=== PATIENT | male | born 1950 | race Caucasian/White ===

== ENCOUNTER → 2020-01-04 10:04 | Outpatient (BNVA) | payer MEDICAID, SELFPAY | PROVIDERS: Family Provider Nurse Practitioner Family; PCP Nurse Practitioner Family; Visit Provider Family Medicine | DX: I10 Essential (primary) hypertension (principal); E78.1 Pure hyperglyceridemia; J44.9 Chronic obstructive pulmonary disease, unspecified | CPT/HCPCS: 80053; 80061 ==

== ENCOUNTER → 2020-12-27 15:11 | Outpatient (BNVA) | payer MEDICAID, SELFPAY | PROVIDERS: Family Provider Nurse Practitioner Family; PCP Nurse Practitioner Family; Visit Provider Family Medicine | DX: I10 Essential (primary) hypertension (principal); J41.0 Simple chronic bronchitis; E78.1 Pure hyperglyceridemia; J32.0 Chronic maxillary sinusitis; G47.33 Obstructive sleep apnea (adult) (pediatric); M62.830 Muscle spasm of back | CPT/HCPCS: 80053; 80061 ==

== ENCOUNTER → 2021-11-28 09:56 | Outpatient (BNVA) | payer MEDICAID, SELFPAY | PROVIDERS: Family Provider Nurse Practitioner Family; PCP Family Medicine; Visit Provider Family Medicine | DX: I10 Essential (primary) hypertension (principal); G47.33 Obstructive sleep apnea (adult) (pediatric); J32.0 Chronic maxillary sinusitis; E78.1 Pure hyperglyceridemia; J44.9 Chronic obstructive pulmonary disease, unspecified; K21.9 Gastro-esophageal reflux disease without esophagitis | CPT/HCPCS: 80053; 80061; 85025 ==

== ENCOUNTER → 2022-12-18 09:39 | Outpatient (BNVA) | payer MEDICARE, MEDICAID, SELFPAY | PROVIDERS: Family Provider Nurse Practitioner Family; PCP Family Medicine; Visit Provider Family Medicine | DX: I10 Essential (primary) hypertension (principal); K21.9 Gastro-esophageal reflux disease without esophagitis; J41.0 Simple chronic bronchitis; G47.33 Obstructive sleep apnea (adult) (pediatric); J32.0 Chronic maxillary sinusitis; E78.1 Pure hyperglyceridemia; J44.9 Chronic obstructive pulmonary disease, unspecified | CPT/HCPCS: 80053; 80061; 85025 ==

== ENCOUNTER → 2023-06-11 11:02 | Outpatient (BNVA) | payer MEDICARE, MEDICAID, SELFPAY | PROVIDERS: Family Provider Nurse Practitioner Family; PCP Family Medicine; Visit Provider Family Medicine | DX: J44.9 Chronic obstructive pulmonary disease, unspecified (principal) | CPT/HCPCS: 71046 ==

== ENCOUNTER → 2024-01-08 10:32 | Outpatient (BNVA) | payer MEDICARE, MEDICAID, SELFPAY | PROVIDERS: Family Provider Nurse Practitioner Family; PCP Family Medicine; Visit Provider Family Medicine | DX: I10 Essential (primary) hypertension (principal); G47.33 Obstructive sleep apnea (adult) (pediatric); J41.0 Simple chronic bronchitis; J32.0 Chronic maxillary sinusitis; K21.9 Gastro-esophageal reflux disease without esophagitis; E78.1 Pure hyperglyceridemia; H61.92 Disorder of left external ear, unspecified; J44.9 Chronic obstructive pulmonary disease, unspecified | CPT/HCPCS: 80053; 80061; 85025 ==

== ENCOUNTER → 2024-01-15 09:37 | Outpatient (BNVA) | payer MEDICARE, MEDICAID, SELFPAY | PROVIDERS: Family Provider Nurse Practitioner Family; PCP Family Medicine; Visit Provider Family Medicine | DX: E87.5 Hyperkalemia (principal) | CPT/HCPCS: 80048 ==

== ENCOUNTER → 2024-01-20 15:27 | Outpatient (BNVA) | payer MEDICARE, MEDICAID, SELFPAY | PROVIDERS: Family Provider Nurse Practitioner Family; PCP Family Medicine; Visit Provider Dermatology | DX: L82.1 Other seborrheic keratosis (principal); L81.4 Other melanin hyperpigmentation; D48.5 Neoplasm of uncertain behavior of skin; L57.0 Actinic keratosis | CPT/HCPCS: 11102; 17000; 69100; 99203 ==

== ENCOUNTER → 2024-02-17 07:58 | Outpatient (BNVA) | payer MEDICARE, MEDICAID, SELFPAY | PROVIDERS: Family Provider Nurse Practitioner Family; PCP Family Medicine; Visit Provider Dermatology | DX: C44.219 Basal cell carcinoma of skin of left ear and external auricular canal (principal) | CPT/HCPCS: 17311 ==

== ENCOUNTER → 2024-02-20 08:36 | Outpatient (BNVA) | payer MEDICARE, MEDICAID, SELFPAY | PROVIDERS: Family Provider Nurse Practitioner Family; PCP Family Medicine; Visit Provider Dermatology | DX: C44.219 Basal cell carcinoma of skin of left ear and external auricular canal (principal) | CPT/HCPCS: 15260 ==

== ENCOUNTER → 2024-03-01 10:25 | Outpatient (BNVA) | payer MEDICARE, MEDICAID, SELFPAY | PROVIDERS: Family Provider Nurse Practitioner Family; PCP Family Medicine; Visit Provider Dermatology | DX: Z48.02 Encounter for removal of sutures (principal) | CPT/HCPCS: 99212 ==

== ENCOUNTER → 2024-03-15 11:18 | Outpatient (BNVA) | payer MEDICARE, MEDICAID, SELFPAY | PROVIDERS: Family Provider Nurse Practitioner Family; PCP Family Medicine; Visit Provider Dermatology | DX: Z48.817 Encounter for surgical aftercare following surgery on the skin and subcutaneous tissue (principal) | CPT/HCPCS: 99212 ==

== ENCOUNTER 2024-03-29 20:42 | Emergency (ER) | payer MEDICARE, MEDICAID, SELFPAY ==
[2024-03-29 20:43] VITALS: BP 171/71; PULSE 82; RESP 20; TEMP 36.9; O2SAT 85; BMI 30.4
--- NOTE | 2024-03-29 20:45 | ECG_ITS ---
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 Measurements Intervals [place] Rate: 81 P: 55 MO: 173 QRS: 63 QRSD: 101 T: 55 QT: 372 QTc: 432 Interpretive Statements SINUS RHYTHM WITH SINUS ARRHYTHMIA No previous ECG available for comparison Electronically Signed On 03-29-2024 23:21:24 CDT by Solis Garrison M.D. [id number] f
--- NOTE | 2024-03-29 21:02 | XRR_ITS ---
PROCEDURE INFORMATION: Exam: XR Chest Exam date and time: 03/29/2024 9:11 PM Age: 73 years old Clinical indication: Shortness of breath; Additional info: SOB TECHNIQUE: Imaging protocol: Radiologic exam of the chest. Views: 1 view. COMPARISON: CR XR chest 2V* [id number] 11/06/2023 11:12 FINDINGS: Lungs: There is incomplete lung expansion and crowding of the vascular markings. Pleural spaces: No pleural effusion or pneumothorax. Heart/Mediastinum: Normal in size. Bones/joints: No acute fracture is identified. XR/XR chest 1V portable [id number] IMPRESSION: There is incomplete lung expansion and crowding of the vascular markings. Pneumonitis may present a similar picture.
--- NOTE | 2024-03-29 21:09 | PC.NURSE ---
Pt does not communicate symptoms or medical hx well, pt also attempts to urinate in triage room trash can. This nurse was unsure if pt was having difficulty with communication due to hypoxia or developmental delay, this nurse spoke with brother who confirms pt does have an intellectual disability and is at baseline. No room available for pt, this nurse retrieved a portable O2 tank and placed pt on 2L NC, oxygen saturation improved to 90% on 2L.
[2024-03-29 21:56] LABS: Basophils % 0.4 %; Eosinophils % 0.1 %; Hematocrit 54.2 % (37-53); Lymphocytes # 1.2 10^3/uL (0.8-4.8); Lymphocytes % 14.7 %; Mean Corpuscular HGB Conc 30.3 g/dL (30-55); Mean Corpuscular Volume 92.5 fl (82-101); Mean Platelet Volume 10.4 fL (7.4-10.4); Monocytes # 0.9 10^3/uL (0.2-0.9); Monocytes % 11.1 %; Neutrophils # 6.02 10^3/uL (1.8-7.7); Neutrophils % 73.5 %; Nucleated Red Blood Cells # 0.1 /100WBC; Nucleated Red Blood Cells % 0.7 %; Platelet Count 184 10^3/cmm (157-399); Red Blood Count 5.86 10^6/uL (3.85-5.65); Red Cell Distribution Width 15.2 % (12.1-15.1); White Blood Count 8.19 10^3/uL (3.29-11.43)
[2024-03-29 22:14] LABS: Alanine Aminotransferase 37 U/L (0-41); Alkaline Phosphatase 81 U/L (40-130); Anion Gap 9.1 (5-19); Aspartate Amino Transferase 32 U/L (0-40); Blood Urea Nitrogen 15 mg/dL (8-23); Carbon Dioxide 40 mmol/L (22-29); Chloride 93 mmol/L (98-107); Creatinine Clr Calc Pharmacy 92.6315; Globulin 3.2 g/dL (1.3-4.6); Glucose 91 mg/dL (65-115); Osmolality Calculated 286 mOsm/kg (285-295); Potassium 4.1 mmol/L (3.5-5.1); Sodium 138 mmol/L (136-145); Total Bilirubin 0.7 mg/dL (0.15-1.2); Total Protein 7.2 g/dL (6.6-8.7)
[2024-03-29 22:24] LABS: NT Pro B Type Natriuretic Pept 521 pg/mL (0-125)
--- NOTE | 2024-03-29 22:51 | ED_ITS ---
HPI - SOB/Dyspnea 2 General: Chief Complaint: Shortness of Breath/Dyspnea Stated Complaint: sob wheezy fever Time Seen by Provider: 03/29/24 22:28 History of Present Illness: HPI Narrative: Patient arrives to the ER with a history of shortness of breath. Patient appears to have O2 sat of approximately 80 to 85% on room air upon his arrival. One of his neighbors comes with him and says he is normally confused due to a head injury when he was a child but he is worse today than normal. Patient does have oxygen at home but he only wears it infrequently. Patient also complaining of dizziness that all started this morning. Patient denies any coughs colds fevers chills. 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 Review of Systems 2 General: Reports: 10 or more systems reviewed and unremarkable except in HPI and below PFSH ED 2 PFSH: Medical History Chronic sinusitis Hypertriglyceridemia Essential hypertension COPD (chronic obstructive pulmonary disease) NOHELIA (obstructive sleep apnea) GERD (gastroesophageal reflux disease) Surgical History No pertinent past surgical history Family History Father CAD (coronary artery disease) Brother Cancer Social History Smoking and tobacco/nicotine status: current every day tobacco/nicotine user (smokeless tobacco) smokeless tobacco Smokeless tobacco user: chewing tobacco Smokeless tobacco details: 1/2 CAN PER DAY Quit status (tobacco/nicotine): not considering quitting Second hand smoke exposure: No Alcohol intake: never Substance/Drug Use: never Current gender identity: Male Physical Exam 2 Const: COMMON NORMALS: no acute distress, average body habitus, patient oriented x3, no limitations, healthy appearing, alert and well nourished HENMT: COMMON NORMALS: normocephalic, atraumatic, hearing grossly normal bilaterally, external ears normal, Normal external nose present and moist oral mucous membranes HEAD & SCALP: normocephalic and atraumatic NOSE: Normal external nose present EXTERNAL EAR: Yes external ears normal Eye: COMMON NORMALS: Equal, round and reactive pupils present, EOMs intact bilaterally, conjunctivae normal and no scleral icterus CONJUNCTIVA: Yes conjunctivae normal PUPIL: Yes Equal, round and reactive pupils present Neck/C-Spine: COMMON NORMALS: no JVD Chest: COMMONS NORMALS: normal inspection of the chest and normal palpation of entire chest wall Resp: COMMON NORMALS: normal respiratory effort, No retractions, No use of accessory muscles and clear to auscultation bilaterally AUSCULTATION: clear to auscultation bilaterally OTHER: Decreased breath sounds bilaterally Cardio: COMMON NORMALS: no JVD, regular rate, regular rhythm, S1 normal heart sound present, S2 normal heart sound present, No gallops present (Cardio), No clicks present (Cardio), No murmurs present (Cardio) and No rub (Cardio) R ATE: regular rate RHYTHM: regular rhythm HEART SOUNDS: S1 normal heart sound present and S2 normal heart sound present GI: COMMON NORMALS: Normal to inspection, nondistended, normoactive bowel sounds present, Soft to palpation, non-tender, No hepatosplenomegaly present and no masses PALPATION: Yes Soft to palpation and Yes No hepatosplenomegaly present Neuro: COMMON NORMALS: patient oriented x3 SENSORIUM/ORIENTATION: Yes alert Course 2 Vital Signs: Vital signs: Vital Signs Temperature 98.4 F 03/29/24 20:43 Pulse Rate 72 03/30/24 00:00 Respiratory Rate 16 03/30/24 00:00 Blood Pressure 142/98 03/30/24 01:26 Pulse Oximetry 90 03/30/24 00:00 Oxygen Delivery Me thod Nasal Cannula 03/30/24 00:00 Oxygen Flow Rate 5 03/30/24 00:00 MDM - SOB/Dyspnea Medical Decision Making Patient was evaluated physical exam and lab work and x-ray, all of which was essentially benign. It appears patient just did not wear his oxygen and got hypoxic patient is feeling much better now that he is on 4 L oxygen. We will discharge patient and go home. We will provide him with some oxygen until he gets home he says he will bring it back. Differential Diagnosis Likely acute exacerbation of chronic obstructive airways disease; Unlikely congestive heart failure, community acquired pneumonia, asthma with exacerbation or pulmonary embolism Medical Records I reviewed the patient's medical records. Lab Data I reviewed the patient's lab results. 03/29/24 21:29 03/29/24 21:29 Labs/Radiology: Radiology Impressions Chest X-Ray 03/29/24 21:02 IMPRESSION: There is incomplete lung expansion and crowding of the vascular markings. Pneumonitis may present a similar picture. Laboratory Results WBC 8.19 10^3/uL (3.29-11.43) 03/29/24 21: RBC 5.86 10^6/uL (3.85-5.65) H 03/29/24 21: Hgb 16.40 g/dL (11.27-16.99) 03/29/24 21: Hct 54.2 % (37-53) H 03/29/24 21: MCV 92.5 fl (82-101) 03/29/24 21: MCH 28.0 pg (27-33) 03/29/24 21: MCHC 30.3 g/dL (30-55) 03/29/24: RDW 15.2 % (12.1-15.1) H 03/29/24: Plt Count 184 10^3/cmm (157-399) 03/29/24 21: MPV 10.4 fL (7.4-10.4) 03/29/24: Neut % (Auto) 73.5 % 03/29/24: Lymph % (Auto) 14.7 % 03/29/24: [place] % (Auto) 11.1 % 03/29/24: Eos % (Auto) 0.1 % 03/29/24: Baso % (Auto) 0.4 % 03/29/24: Neut # (Auto) 6.02 10^3/uL (1.8-7.7) 03/29/24: Lymph # (Auto) 1.2 10^3/uL (0.8-4.8) 03/29/24: [place] # (Auto) 0.9 10^3/uL (0.2-0.9) 03/29/24: Eos # (Auto) 0.0 10^3/uL (0.0-0.8) 03/29/24: Baso # (Auto) 0.0 10^3/uL (0.0-0.1) 03/29/24 21:29 Nucleated RBC % (auto) 0.7 % 03/29/24 21:29 Nucleated RBCs # 0.1 /100WBC 03/29/24 21:29 Specimen Type Arterial 03/29/24 22:48 Sample Site Radial, left 03/29/24 22:48 ABG pH 7.39 (7.35-7.45) 03/29/24 22:48 ABG pCO2 71.3 mmHg (35-45) H* 03/29/24 22:48 ABG pO2 55.7 mmHg (80.0-100.0) L 03/29/24 22:48 ABG HCO3 42.9 mmol/L (22-26) H 03/29/24 22:48 ABG O2 Saturation 87.3 03/29/24 22:48 ABG Base Excess 13.3 mmol/L (-2.0-2.0) H 03/29/24 22:48 Nicholas Test Pos 03/29/24 22:48 A-a O2 Gradient 1.0 mmHg (5-10) L 03/29/24 22:48 Hematocrit 53.5 % (42-52) H 03/29/24 22:48 Hgb O2 Saturation 85.1 % (95-100) L 03/29/24 22:48 Carboxyhemoglobin 1.9 %THgb (0.4-20.1) 03/29/24 22:48 Methemoglobin 0.7 % (0.4-1.5) 03/29/24 22:48 Total Hemoglobin 17.5 g/dL (14-18) 03/29/24 22:48 Sodium 143.0 mmol/L (131-143) 03/29/24 22:48 Potassium 4.0 mmol/L (3.5-5.0) 03/29/24 22:48 Glucose 90.0 mg/dL (70-115) 03/29/24 22:48 Ionized Calcium 1.2 mmol/L (1.1-1.4) 03/29/24 22:48 O2 Delivery Device Nc 03/29/24 22:48 O2 Liters/Min 2.0 % 03/29/24 22:48 Hand Shaper ID [id number] 03/29/24 22:48 Sodium 138 mmol/L (136-145) 03/29/24 21:29 Potassium 4.1 mmol/L (3.5-5.1) 03/29/24 21: Chloride 93 mmol/L (98-107) L 03/29/24 21: Carbon Dioxide 40 mmol/L (22-29) H 03/29/24 21: Anion Gap 9.1 (5-19) 03/29/24 21: BUN 15 mg/dL (8-23) 03/29/24 21: Creatinine 0.5 mg/dL (0.7-1.2) L 03/29/24 21: GFR Calculation Not Reportable 03/29/24 21: Glucose 91 mg/dL (65-115) 03/29/24: Calculated Osmolality 286 mOsm/kg (285-295) 03/29/24: Calcium 9.0 mg/dL (8.5-10.5) 03/29/24: Total Bilirubin 0.7 mg/dL (0.15-1.2) 03/29/24: AST 32 U/L (0-40) 03/29/24 21: ALT 37 U/L (0-41) 03/29/24 21: Alkaline Phosphatase 81 U/L (40-130) 03/29/24 21: NT-Pro-B Natriuret Pep 521 pg/mL (0-125) H 03/29/24 21: Total Protein 7.2 g/dL (6.6-8.7) 03/29/24 21: Albumin 4.0 g/dL (3.5-5.2) 03/29/24 21: Globulin 3.2 g/dL (1.3-4.6) 03/29/24 21: Urine Color Yellow (Yellow) 03/29/24 23:40 Urine Appearance Clear (CLEAR) 03/29/24 23:40 Urine pH 8 (5-7) H 03/29/24 23:40 Ur Specific [place] 1.020 (1.005-1.030) 03/29/24 23:40 Urine Protein Trace (Negative) 03/29/24 23:40 Urine Glucose (UA) Norm (Normal) 03/29/24 23:40 Urine Ketones Negative (Negative) 03/29/24 23:40 Urine Blood 2+ (Negative) H 03/29/24 23:40 Urine Nitrate Negative (Negative) 03/29/24 23:40 Urine Bilirubin Neg (Negative) 03/29/24 23:40 Urine Urobilinogen Neg mg/dL (Negative) 03/29/24 23:40 Ur Leukocyte Esterase Negative (Negative) 03/29/24 23:40 Urine RBC 0-4 /hpf (0-2) H 03/29/24 23:40 Urine WBC None /hpf (0-5) 03/29/24 23:40 Ur Squamous Epith Cells None /hpf (0-5) 03/29/24 23:40 Amorphous Sediment 2+ /hpf 03/29/24 23:40 Urine Bacteria 1+ /hpf (NONE) H 03/29/24 23:40 Influenza Type A Ag negative (Negative) 03/29/24 23:46 Influenza Type B Ag negative (Negative) 03/29/24 23:46 SARS-CoV-2 Ag (Rapid) negative (Negative) 03/29/24 23:46 All radiology interpretation(s) finalized by discharge EKG Data EKG 1: I personally reviewed and interpreted this EKG as follows: EKG Interpretation Date: 03/29/24 EKG interpretation time: 20:45 Interpretation: Ventricular rate 81 bpm, DC interval 173, QRS duration 101, QTc of 4 9, sinus rhythm Discharge Plan Discharge Patient Disposition: Home Clinical Impression: COPD (chronic obstructive pulmonary disease) Qualifiers: COPD type: chronic bronchitis Chronic bronchitis type: simple Qualified Code(s): J41.0 - Simple chronic bronchitis Condition: Stable Prescriptions: No Action Complete Multivitamin Tablet 1 tab PO DAILY amlodipine 10 mg tablet 10 mg PO DAILY 90 Days Qty: 90 3RF budesonide 0.5 mg/2 mL suspension for nebulization 0.5 mg inhalation BID Qty: 60 11RF Rx Instructions: for use with nebulizer budesonide-formoterol [Symbicort] 160-4.5 mcg/actuation HFA aerosol inhaler See Rx Instructions .ROUTE .COMPLEX Qty: 10.2 11RF Dose Instruction: 2 PUFF(S) EVERY 12 HOURS FOR 30 DAYS RINSE MOUTH AFTER Rx Instructions: 2 PUFF(S) EVERY 12 HOURS FOR 30 DAYS RINSE MOUTH AFTER fluticasone propionate [Allergy Relief (fluticasone)] 50 mcg/actuation spray,suspension 1 spray INTRANASAL DAILY 90 Days Qty: 54.6 11RF Rx Instructions: each nostril daily losartan-hydrochlorothiazide 100-25 mg tablet 1 tab PO DAILY 90 Days Qty: 90 3RF miscellaneous medical supply Misc See Rx Instructions miscellaneous .COMPLEX Qty: 1 0RF Rx Instructions: Oxygen 3L NC at all times (activity and rest) miscellaneous; omeprazole 20 mg capsule,delayed release(DR/EC) 20 mg PO DAILY 90 Days Qty: 90 3RF albuterol sulfate [Ventolin HFA] 90 mcg/actuation HFA aerosol inhaler See Rx Instructions .ROUTE .COMPLEX Qty: 18 11RF Dose Instruction: 2 PUFF(S) EVERY 6 HOURS NEEDED FOR SHORTNESS OF BREATH/WHEEZING Rx Instructions: 2 PUFF(S) EVERY 6 HOURS NEEDED FOR SHORTNESS OF BREATH/WHEEZING omega 3-bas-uiw-fish oil [Fish Oil] 1,000 mg (120 mg-180 mg) capsule 1 cap PO BID 90 Days Qty: 180 3RF Rx Instructions: may change brand/type/size fishoil per insurance coverage nystatin 100,000 unit/mL suspension 1,000,000 unit PO BID 30 Days Qty: 480 11RF Rx Instructions: swish and swallow or spit use after symbicort inhaler formoterol fumarate [Perforomist] 20 mcg/2 mL solution for nebulization 2 ml inhalation BID Qty: 60 11RF Rx Instructions: for use with nebulizer (DME) oxygen-air delivery systems Device See Rx Instructions .Route Rx Instructions: 3 lpm 24/ prn miscellaneous medical supply Misc 1 ea miscellaneous ONCE Qty: 1 0RF Rx Instructions: Oxygen supplies 3L of oxygen Discharge Orders: Discharge ED (Routine); Ordered 03/30/24 Ordered By: Abdullahi Beatty Referrals: Butch Monsalve FNP [Family Provider] - Vida Bellamy MD [Primary Care Provider] - Patient Instructions: COPD (Chronic Obstructive Pulmonary Disease) (DC) Activity Restrictions/Additional Instructions: Please wear your oxygen at all times up to 4 L/min per nasal cannula, please follow-up with your primary care practitioner over the next 7 days for further evaluation and treatment. Coding Level of Care Code ED Distribution Center Assistant for Anali Suárez
[2024-03-29 22:55] LABS: ABG PH Result 7.39 (7.35-7.45); Arterial Blood Gas Hematocrit 53.5 % (42-52); Base Excess ABG 13.3 mmol/L (-2.0-2.0); Blood Gas Allen Test Pos; Blood Gas Sample Site Radial, left; Blood Gas Sample Type Arterial; Carboxyhemoglobin 1.9 %THgb (0.4-20.1); HCO3 ABG 42.9 mmol/L (22-26); HGB O2 Sat 85.1 % (95-100); Ionized Calcium Level - ABG 1.2 mmol/L (1.1-1.4); Methemoglobin 0.7 % (0.4-1.5); Oxygen Saturation ABG 87.3; PO2 ABG 55.7 mmHg (80.0-100.0); Total Hemoglobin 17.5 g/dL (14-18)
[2024-03-29 22:56] LABS: Blood Gas Operator Identificat 0jb; Oxygen Device NC
[2024-03-29 22:57] LABS: ABG PCO2 71.3 mmHg (35-45)
[2024-03-29 23:25] VITALS: PULSE 76; RESP 18; O2SAT 93
[2024-03-29 23:41] VITALS: BP 149/92; PULSE 75; RESP 18; O2SAT 92
[2024-03-29 23:45] VITALS: BP 149/92; PULSE 82; RESP 16; O2SAT 94
[2024-03-29 23:54] LABS: Add Urine Culture? No; Add Urine Microscopic? YES; Amorphous Sediment Urine 2+ /hpf; Bacteria Urine 1+ /hpf; Bilirubin Urine Neg (Negative); Blood Urine 2+ (Negative); Glucose Urine UA Norm (Normal); Ketones Urine Negative (Negative); Leukocyte Esterase Urine Negative (Negative); Nitrate Urine Negative (Negative); Protein Urine Trace (Negative); RBC Urine 0-4 /hpf (0-2); Urine Appearance Clear (CLEAR); Urine Color Yellow (Yellow); Urobilinogen Urine Neg (Negative); pH Urine 8 (5-7)
[2024-03-30] VITALS: BP 145/91; PULSE 72; RESP 16; O2SAT 90
[2024-03-30 00:04] LABS: Influenza A by IFA negative (Negative); Influenza B by IFA negative (Negative); SARS Covid-2 Antigen negative (Negative)
[2024-03-30 01:26] VITALS: BP 142/98
== END 2024-03-30 01:28 | disposition home or self-care (01) ==
PROVIDERS: Emergency Medicine; Emergency Provider Emergency Medicine; PCP Family Medicine
DX: J44.89 Other specified chronic obstructive pulmonary disease (principal); Z11.52 Encounter for screening for COVID-19; I10 Essential (primary) hypertension; F17.220 Nicotine dependence, chewing tobacco, uncomplicated
CPT/HCPCS: 36415; 36600; 71045; 80051; 80053; 81001; 82330; 82805; 83880; 85025; 87426; 87804; 93005; 99285

== ENCOUNTER 2024-03-30 18:18 | Inpatient (IN) | payer MEDICARE, MEDICAID, SELFPAY ==
[2024-03-30] VITALS (13 sets, daily range): BP systolic 144–160; BP diastolic 77–89; PULSE 56–79; RESP 18–22; TEMP 36.4–36.7; O2SAT 70–97; BMI 37.2; BMI 36.9
--- NOTE | 2024-03-30 18:24 | ECG_ITS ---
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 Measurements Intervals [place] Rate: 73 P: 61 [place]: 176 QRS: 93 QRSD: 102 T: 69 QT: 402 QTc: 443 Interpretive Statements SINUS RHYTHM WITH MARKED SINUS ARRHYTHMIA BORDERLINE RIGHT AXIS DEVIATION [QRS AXIS > 90] Compared to ECG 03/29/2024 20:45:12 No significant changes Electronically Signed On 03-30-2024 21:33:38 CDT by Stef Montejo M.D. [id number] f
--- NOTE | 2024-03-30 18:25 | PC.NURSE ---
PATIENT PLACED ON 6 L NC AT TRIAGE. INCREASED TO 87%.
--- NOTE | 2024-03-30 18:27 | CTR_ITS ---
PROCEDURE INFORMATION: Exam: CTA Chest With Contrast Exam date and time: 03/30/2024 7:43 PM Age: 73 years old Clinical indication: Other: Hypoxia TECHNIQUE: Imaging protocol: Computed tomographic angiography of the chest with contrast. Exam focused on the arteries. 3D rendering (Not supervised by radiologist): MIP and/or 3D reconstructed images were created by the technologist. Radiation optimization: All CT scans at this facility use at least one of these dose optimization techniques: automated exposure control; mA and/or kV adjustment per patient size (includes targeted exams where dose is matched to clinical indication); or iterative reconstruction. Contrast material: OMNI 350; Contrast volume: 93 ml; Contrast route: INTRAVENOUS (IV); COMPARISON: CR (CHEST, ) 03/29/2024 9:11 PM RADIATION DOSE METRICS: Total DLP (mGy-cm): 578.7 FINDINGS: Pulmonary arteries: Adequate visualization of the pulmonary arteries to the subsegmental level. No pulmonary embolism. Aorta: Ascending aorta is normal in caliber. Lungs: Compressive atelectatic lung changes at the bases. Low lung volumes. Pleural spaces: Small right-sided pleural effusion with compressive atelectatic lung changes. Heart: Unremarkable. No cardiomegaly. No pericardial effusion. Coronary arteries: Moderate coronary artery calcifications predominantly along the LAD and D1. Lymph nodes: Unremarkable. No enlarged lymph nodes. Bones/joints: Unremarkable. No acute fracture. Soft tissues: Unremarkable. CT/CT angio chest PE protcl [id number] IMPRESSION: 1. No pulmonary embolism. 2. Moderate coronary artery calcifications predominantly along the LAD and D1.
[2024-03-30] MEDS: methylPREDNISolone sod succ 125 mg/2 mL INJ IVP (18:37)
[2024-03-30 18:45] LABS: ABG PH Result 7.33 (7.35-7.45); Arterial Blood Gas Hematocrit 52.8 % (42-52); Base Excess ABG 12.9 mmol/L (-2.0-2.0); Blood Gas Allen Test Pos; Blood Gas Operator Identificat WALCI; Blood Gas Sample Site Radial, left; Blood Gas Sample Type Arterial; HGB O2 Sat 84.4 % (95-100); Ionized Calcium Level - ABG 1.2 mmol/L (1.1-1.4); Oxygen Device NC; Oxygen Saturation ABG 86.2; PO2 ABG 53.7 mmHg (80.0-100.0); Potassium Level - ABG 3.9 mmol/L (3.5-5.0); Total Hemoglobin 17.2 g/dL (14-18)
[2024-03-30 18:46] LABS: ABG PCO2 83.2 mmHg (35-45)
[2024-03-30] MEDS: ipratropium-albuterol 3 mL Neb INHALATION (18:49)
[2024-03-30 18:55] LABS: Basophils % 0.4 %; Eosinophils % 0.5 %; Lymphocytes # 1.2 10^3/uL (0.8-4.8); Lymphocytes % 15.9 %; Mean Corpuscular HGB Conc 30.4 g/dL (30-55); Mean Corpuscular Hemoglobin 28.1 pg (27-33); Mean Corpuscular Volume 92.4 fl (82-101); Mean Platelet Volume 10.1 fL (7.4-10.4); Monocytes # 0.8 10^3/uL (0.2-0.9); Neutrophils # 5.26 10^3/uL (1.8-7.7); Neutrophils % 72.1 %; Nucleated Red Blood Cells % 0 %; Platelet Count 175 10^3/cmm (157-399); Red Blood Count 6.06 10^6/uL (3.85-5.65); Red Cell Distribution Width 15.1 % (12.1-15.1)
--- NOTE | 2024-03-30 19:11 | W.ED.SOB ---
HPI - SOB/Dyspnea General: Chief Complaint: Shortness of Breath/Dyspnea Stated Complaint: sob Time Seen by Provider: 03/30/24 18:21 History of Present Illness: HPI Narrative: Patient presents back to the ER with complaints of shortness of breath. I saw the patient last night early this morning for the same thing. His CO2 was high then by respiratory thought he was a compensating well as he is only on 2 L of oxygen per nasal cannula when we send him home. Family member says he went by to talk to him today and he could not arouse him and when he finally did arouse him he was on the oxygen through his concentrator at about 4 L/min which is normal but he looked purple and blue in very confused and slow to arouse. EMS was called when they got there his O2 saturation was down in the 80s even on his oxygen. They placed him on nonrebreather given 1 albuterol treatment and quickly bumped him up to 90s. They eventually took him off the nonrebreather and put him on nasal cannula at 6 L/min and upon arrival here he was satting 95%. We did repeat his ABG which looks about the same other than his CO2 went upwards from 70 to approximately 80. His neighbor question whether or not his home oxygen was working and then he mentioned he needed CPAP or BiPAP at night because he failed a sleep study and if for some reason insurance would not pay for it. Review of Systems General: Reports: 10 or more systems reviewed and unremarkable except in HPI and below PFSH ED PFSH: Medical History Chronic sinusitis Hypertriglyceridemia Essential hypertension COPD (chronic obstructive pulmonary disease) NOHELIA (obstructive sleep apnea) GERD (gastroesophageal reflux disease) Surgical History No pertinent past surgical history Family History Father CAD (coronary artery disease) Brother Cancer Social History Smoking and tobacco/nicotine status: current every day tobacco/nicotine user (smokeless tobacco) smokeless tobacco Smokeless tobacco user: chewing tobacco Smokeless tobacco details: 1/2 CAN PER DAY Quit status (tobacco/nicotine): not considering quitting Second hand smoke exposure: No Alcohol intake: never Substance/Drug Use: never Current gender identity: Male Physical Exam Const: COMMON NORMALS: no acute distress, average body habitus, patient oriented x3, no limitations, healthy appearing, alert and well nourished HENMT: COMMON NORMALS: normocephalic, atraumatic, hearing grossly normal bilaterally, external ears normal, Normal external nose present and moist oral mucous membranes HEAD & SCALP: normocephalic and atraumatic NOSE: Normal external nose present EXTERNAL EAR: Yes external ears normal Neck/C-Spine: COMMON NORMALS: no JVD Chest: COMMONS NORMALS: normal inspection of the chest and normal palpation of entire chest wall Resp: COMMON NORMALS: normal respiratory effort, No retractions and No use of accessory muscles; negative for clear to auscultation bilaterally (Decreased breath sounds bilaterally occasional expiratory wheeze) AUSCULTATION: not clear to auscultation bilaterally (Decreased breath sounds bilaterally occasional expiratory wheeze) Cardio: COMMON NORMALS: no JVD, regular rate, regular rhythm, S1 normal heart sound present, S2 normal heart sound present, No gallops present (Cardio), No clicks present (Cardio), No murmurs present (Cardio) and No rub (Cardio) RATE: regular rate RHYTHM: regular rhythm HEART SOUNDS: S1 normal heart sound present and S2 normal heart sound present GI: COMMON NORMALS: Normal to inspection, nondistended, normoactive bowel sounds present, Soft to palpation, non-tender, No hepatosplenomegaly present and no masses PALPATION: Yes Soft to palpation and Yes No hepatosplenomegaly present Neuro: COMMON NORMALS: patient oriented x3 SENSORIUM/ORIENTATION: Yes alert Course Vital Signs: Vital signs: Vital Signs Temperature 98.1 F 03/30/24 18:19 Pulse Rate 56 L 03/30/24 19:00 Respiratory Rate 20 H 03/30/24 19:00 Blood Pressure 150/77 03/30/24 19:00 Pulse Oximetry 94 03/30/24 19:00 Oxygen Delivery Me thod BiPAP 03/30/24 19:00 Oxygen Flow Rate 5 03/30/24 18:37 Fraction of Inspir ed Oxygen 55 03/30/24 18:55 MDM - SOB/Dyspnea Medical Decision Making Patient presented to the ER on 6 L per nasal cannula with O2 sat of 93%. ABG was obtained which was similar to the one done earlier this morning except his pCO2 went up from about 70 to about 83. Patient was then placed on BiPAP per respiratory. Rest of his lab work unremarkable or unchanged. This CO2 was 42 this time where it was 40 previously. CTA is pending. Since patient really presented to the ER with the same complaint and is now on BiPAP I talk with Dr. Alford who suggest we place patient inpatient for acute respiratory failure with hypoxia and hypercapnia and talk to his oxygen supplier to go out and look at his home concentrator. Differential Diagnosis Likely acute exacerbation of chronic obstructive airways disease Medical Records I reviewed the patient's medical records. Lab Data I reviewed the patient's lab results. 03/30/24 18:42 03/30/24 18:42 Labs/Radiology: Laboratory Results WBC 7.30 10^3/uL (3.29-11.43) 03/30/24 18:42 RBC 6.06 10^6/uL (3.85-5.65) H 03/30/24 18:42 Hgb 17.00 g/dL (11.27-16.99) H 03/30/24 18:42 Hct 56.0 % (37-53) H 03/30/24 18:42 MCV 92.4 fl (82-101) 03/30/24 18:42 MCH 28.1 pg (27-33) 03/30/24 18:42 MCHC 30.4 g/dL (30-55) 03/30/24 18:42 RDW 15.1 % (12.1-15.1) 03/30/24 18:42 Plt Count 175 10^3/cmm (157-399) 03/30/24 18:42 MPV 10.1 fL (7.4-10.4) 03/30/24 18:42 Neut % (Auto) 72.1 % 03/30/24 18:42 Lymph % (Auto) 15.9 % 03/30/24 18:42 [place] % (Auto) 11.0 % 03/30/24 18:42 Eos % (Auto) 0.5 % 03/30/24 18:42 Baso % (Auto) 0.4 % 03/30/24 18:42 Neut # (Auto) 5.26 10^3/uL (1.8-7.7) 03/30/24 18:42 Lymph # (Auto) 1.2 10^3/uL (0.8-4.8) 03/30/24 18:42 [place] # (Auto) 0.8 10^3/uL (0.2-0.9) 03/30/24 18:42 Eos # (Auto) 0.0 10^3/uL (0.0-0.8) 03/30/24 18:42 Baso # (Auto) 0.0 10^3/uL (0.0-0.1) 03/30/24 18:42 Nucleated RBC % (auto) 0 % 03/30/24 18:42 Nucleated RBCs # 0.0 /100WBC 03/30/24 18:42 Specimen Type Arterial 03/30/24 18:34 Sample Site Radial, left 03/30/24 18:34 ABG pH 7.33 (7.35-7.45) L 03/30/24 18:34 ABG pCO2 83.2 mmHg (35-45) H* 03/30/24 18:34 ABG pO2 53.7 mmHg (80.0-100.0) L 03/30/24 18:34 ABG HCO3 44.0 mmol/L (22-26) H 03/30/24 18:34 ABG O2 Saturation 86.2 03/30/24 18:34 ABG Base Excess 12.9 mmol/L (-2.0-2.0) H 03/30/24 18:34 Nicholas Test Pos 03/30/24 18:34 A-a O2 Gradient Not Reportable 03/30/24 18:34 Hematocrit 52.8 % (42-52) H 03/30/24 18:34 Hgb O2 Saturation 84.4 % (95-100) L 03/30/24 18:34 Carboxyhemoglobin 2.0 %THgb (0.4-20.1) 03/30/24 18:34 Methemoglobin 0.0 % (0.4-1.5) L 03/30/24 18:34 Total Hemoglobin 17.2 g/dL (14-18) 03/30/24 18:34 Sodium 143.0 mmol/L (131-143) 03/30/24 18:34 Potassium 3.9 mmol/L (3.5-5.0) 03/30/24 18:34 Glucose 88.0 mg/dL (70-115) 03/30/24 18:34 Ionized Calcium 1.2 mmol/L (1.1-1.4) 03/30/24 18:34 O2 Delivery Device Nc 03/30/24 18:34 O2 Liters/Min 5.0 % 03/30/24 18:34 Clinical Application Specialist ID [place] 03/30/24 18:34 Sodium 143 mmol/L (136-145) 03/30/24 18:42 Potassium 4.1 mmol/L (3.5-5.1) 03/30/24 18:42 Anion Gap 10.1 (5-19) 03/30/24 18:42 BUN 13 mg/dL (8-23) 03/30/24 18:42 GFR Calculation Not Reportable 03/30/24 18:42 Glucose 95 mg/dL (65-115) 03/30/24 18:42 Calcium 8.8 mg/dL (8.5-10.5) 03/30/24 18:42 Total Bilirubin 0.7 mg/dL (0.15-1.2) 03/30/24 18:42 AST 39 U/L (0-40) 03/30/24 18:42 Alkaline Phosphatase 79 U/L (40-130) 03/30/24 18:42 Total Protein 7.2 g/dL (6.6-8.7) 03/30/24 18:42 Albumin 4.0 g/dL (3.5-5.2) 03/30/24 18:42 Globulin 3.2 g/dL (1.3-4.6) 03/30/24 18:42 All radiology interpretation(s) finalized by discharge EKG Data EKG 1: I personally reviewed and interpreted this EKG as follows: EKG Interpretation Date: 03/30/24 EKG interpretation time: 18:24 Interpretation: Ventricular rate 73 bpm, AL interval 176, QRS duration 102, QTc of 427, sinus rhythm with marked sinus arrhythmia Discharge Plan Discharge Patient Disposition: Admitted As Inpatient Clinical Impression: Acute respiratory failure with hypoxia and hypercapnia Condition: Stable Coding Level of Care Code ED 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
[2024-03-30 19:25] LABS: Alanine Aminotransferase 44 U/L (0-41); Alkaline Phosphatase 79 U/L (40-130); Anion Gap 10.1 (5-19); Aspartate Amino Transferase 39 U/L (0-40); Blood Urea Nitrogen 13 mg/dL (8-23); Calcium 8.8 mg/dL (8.5-10.5); Chloride 95 mmol/L (98-107); Creatinine Clr Calc Pharmacy 102.4123; Globulin 3.2 g/dL (1.3-4.6); Glucose 95 mg/dL (65-115); NT Pro B Type Natriuretic Pept 333 pg/mL (0-125); Osmolality Calculated 296 mOsm/kg (285-295); Potassium 4.1 mmol/L (3.5-5.1); Sodium 143 mmol/L (136-145); Total Bilirubin 0.7 mg/dL (0.15-1.2); Total Protein 7.2 g/dL (6.6-8.7)
[2024-03-30 19:31] LABS: Carbon Dioxide 42 mmol/L (22-29)
[2024-03-30] MEDS: iohexol 350 mg/mL 500 mL Btl (per mL) IV (20:00)
--- NOTE | 2024-03-30 20:24 | P.HP_ITS ---
Providers/Chief Complaint 2 Primary Care Provider: Vida Bellamy MD Chief Complaint: sob History of Present Illness Ron Davies is a 73 year old male With past medical history of chronic sinusitis, hypertension, COPD, obstructive sleep apnea presented to the hospital with complaints of shortness of breath. He was apparently in the ER yesterday for the similar complaint. At home apparently he was unable to be aroused and when he was aroused he was on his concentrator at 4 L/min however patient appeared purple and was very confused. EMS was called. Saturations were in the 80s even when on oxygen. Patient was placed on nonrebreather and given 1 albuterol treatment his saturations came up to the 90s. He was taken off the nonrebreather and placed on nasal cannula 6 L/min and upon arrival to ER patient was 95%. ABG was obtained which showed 7.3 3/80/50 3.7. Patient was placed on BiPAP. Unsure of patient's home oxygen concentration is working or not. Patient's neighbor stated that patient has failed a sleep study however did not qualify for BiPAP or CPAP. Patient seen in room 250/2. He is currently on BiPAP. He states he is doing well and his breathing has improved quite a bit. Unable to provide me with much history. He is a poor historian. He was also difficult to hear him through the mask. He denies having any sputum production. Denies chest pain, abdominal pain, nausea vomiting diarrhea. Does endorse having shortness of breath however. At this time states he feels better. He did tell me he is also questioning his oxygen machine working or not at this point. Medications/Allergies Home Medications Medication Instructions Recorded Confirmed Last Taken Type multivitamin,om-ulcq-ejquklzy 1 tab PO DAILY 01/04/20 03/31/24 Unknown History (Complete Multivitamin tablet) oxygen-air delivery systems 01/26/21 03/31/24 Unknown History miscellaneous medical supply 1 ea miscellaneous ONCE COPD #1 ea 12/04/21 03/31/24 Unknown Rx formoterol fumarate 20 mcg/2 mL 2 ml inhalation BID shortness of 12/18/22 03/31/24 Unknown Rx solution for nebulization breath and wheezing #60 mL (Perforomist) Ventolin HFA 90 mcg/actuation See Rx Instructions .Route 01/08/24 03/31/24 Unknown Rx aerosol inhaler (albuterol sulfate) .COMPLEX #18 grams amlodipine 10 mg tablet 10 mg PO DAILY 90 days #90 tabs 01/08/24 03/31/24 Unknown Rx budesonide 0.5 mg/2 mL suspension 0.5 mg (2 mL) inhalation BID 01/08/24 03/31/24 Unknown Rx for nebulization shortness of breath and wheezing #60 mL budesonide-formoterol HFA 160 See Rx Instructions .Route 01/08/24 03/31/24 Unknown Rx mcg-4.5 mcg/actuation aerosol .COMPLEX #10.2 grams inhaler (Symbicort) fluticasone propionate 50 1 spray intranasal DAILY 90 days 01/08/24 03/31/24 Unknown Rx mcg/actuation nasal #54.6 mL spray,suspension (Allergy Relief (fluticasone)) losartan 100 1 tab PO DAILY 90 days #90 tabs 01/08/24 03/31/24 Unknown Rx mg-hydrochlorothiazide 25 mg tablet miscellaneous medical supply See Rx Instructions miscellaneous 01/08/24 03/31/24 Unknown Rx .COMPLEX #1 ea nystatin 100,000 unit/mL oral 1,000,000 unit (10 mL) PO BID 30 01/08/24 03/31/24 Unknown Rx suspension days #480 mL omega 9-lss-qwq-fish oil 1,000 mg 1 cap PO BID 90 days #180 caps 01/08/24 03/31/24 Unknown Rx (120 mg-180 mg) capsule (Fish Oil) omeprazole 20 mg capsule,delayed 20 mg PO DAILY 90 days #90 caps 01/08/24 03/31/24 Unknown Rx release Allergies Allergy/AdvReac Type Severity Reaction Status Date / Time TRISTINE Allergy Unknown UNKNOWN Uncoded 01/08/24 09:53 PFSH Acute 2 PFSH: Medical History Chronic sinusitis Hypertriglyceridemia Essential hypertension COPD (chronic obstructive pulmonary disease) NOHELIA (obstructive sleep apnea) GERD (gastroesophageal reflux disease) Surgical History No pertinent past surgical history Family History Father CAD (coronary artery disease) Brother Cancer Social History Smoking and tobacco/nicotine status: current every day tobacco/nicotine user (smokeless tobacco) smokeless tobacco Smokeless tobacco user: chewing tobacco Smokeless tobacco details: 1/2 CAN PER DAY Quit status (tobacco/nicotine): not considering quitting Second hand smoke exposure: No Alcohol intake: never Substance/Drug Use: never Current gender identity: Male Vitals/I&O/Wt Last Vital Signs Temp 98.1 F 03/30/24 18:19 Pulse 65 03/30/24 20:01 Resp 20 H 03/30/24 20:01 BP 144/89 03/30/24 20:01 Pulse Ox 97 03/30/24 20:01 O2 Del Method BiPAP 03/30/24 19:30 O2 Flow Rate 5 03/30/24 18:37 FiO2 55 03/30/24 19:48 Weight last 48 hrs Weight 111.13 kg Physical Exam 2 Narrative: Laying in bed on BiPAP, awake alert oriented able to protect airway, no acute distress, no conversational dyspnea on room air Diminished bilateral air entry to lungs, no gross rhonchi however diffuse wheezes present. Abdomen soft nontender No edema bilateral lower extremities Normal S1-S2 however difficult to auscultate cardiac sounds secondary to obese body habitus and BiPAP running at this time. Data 03/31/24 04:11 03/31/24 04:11 A&P Assessment and plan (1) Essential hypertension: (2) Chronic sinusitis: Qualifiers: Sinusitis location: maxillary Qualified Code(s): J32.0 - Chronic maxillary sinusitis (3) GERD (gastroesophageal reflux disease): Qualifiers: Esophagitis presence: without esophagitis Qualified Code(s): K21.9 - Gastro-esophageal reflux disease without esophagitis (4) COPD (chronic obstructive pulmonary disease): Qualifiers: COPD type: chronic bronchitis Chronic bronchitis type: simple Qualified Code(s): J41.0 - Simple chronic bronchitis (5) Acute respiratory failure with hypoxia and hypercapnia: (6) NOHELIA (obstructive sleep apnea): (7) Hypoxia: (8) Unresponsive episode: Plan #COPD exacerbation #Episode of unresponsiveness, severe hypoxia at home # Possible malfunctioning oxygen concentrator? #Hypertension #Obstructive sleep apnea -No family present at bedside at this time. Apparently patient did not qualify for BiPAP after sleep study previously? Will need to look into this further in the morning ? Patient did have episode of unresponsiveness, found purple and blue with hypoxia down to 80s on arrival of EMS. Patient is now on BiPAP saturating 93%. ? CTA ruled out pulmonary embolism, moderate coronary artery calcifications predominantly along the LAD ? Check sputum Gram stain culture, blood cultures ? Placed on telemetry to rule out cardiac arrhythmia. -Placed on Solu-Medrol 40 IV twice daily, doxycycline ? Check ABG in a.m. ? Hemoglobin 17. Chronic polycythemia. ? DuoNeb every 6 hours scheduled ? Lovenox subcu 40 daily ? Amlodipine 10 daily ? Losartan 100 daily ? Patient is slightly bradycardic into the 50s. Most likely secondary to obstructive sleep apnea. - Home med rec to be completed Full code DVT prophylaxis: Lovenox Attestations 2 Medical Necessity Statement*: > 2 midnight stay for COPD exacerbation Diagnoses Essential hypertension I10 Chronic maxillary sinusitis J32.0 Sinusitis location: maxillary Gastroesophageal reflux disease without esophagitis K21.9 Esophagitis presence: without esophagitis Simple chronic bronchitis J41.0 COPD type: chronic bronchitis Chronic bronchitis type: simple Acute respiratory failure with hypoxia and hypercapnia J96.01; J96.02 NOHELIA (obstructive sleep apnea) G47.33 Hypoxia R09.02 Unresponsive episode R40.4
[2024-03-30] MEDS: enoxaparin 40 mg/0.4 mL Syringe SUBCUT (21:16)
[2024-03-31] VITALS (37 sets, daily range): BP systolic 114–157; BP diastolic 73–94; PULSE 54–101; RESP 15–25; TEMP 36.4–37; O2SAT 90–97
[2024-03-31 03:42] LABS: ABG PH Result 7.26 (7.35-7.45); Arterial Blood Gas Hematocrit 52.3 % (42-52); Base Excess ABG 10.3 mmol/L (-2.0-2.0); Blood Gas Allen Test Pos; Blood Gas Operator Identificat MONRO; Blood Gas Sample Site Radial, right; Blood Gas Sample Type Arterial; HCO3 ABG 42.9 mmol/L (22-26); Oxygen Device BIPAP; PO2 ABG 86.3 mmHg (80.0-100.0); PO2 FiO2 Ratio Arterial Blood 156
[2024-03-31 03:43] LABS: ABG PCO2 95.9 mmHg (35-45)
[2024-03-31 05:09] LABS: Basophils % 0.1 %; Hematocrit 57.3 % (37-53); Lymphocytes # 0.4 10^3/uL (0.8-4.8); Lymphocytes % 5.7 %; Mean Corpuscular HGB Conc 29.8 g/dL (30-55); Mean Corpuscular Volume 93.8 fl (82-101); Mean Platelet Volume 9.7 fL (7.4-10.4); Monocytes % 0.4 %; Neutrophils # 6.23 10^3/uL (1.8-7.7); Neutrophils % 93.4 %; Nucleated Red Blood Cells % 0 %; Platelet Count 185 10^3/cmm (157-399); Red Blood Count 6.11 10^6/uL (3.85-5.65); Red Cell Distribution Width 15.1 % (12.1-15.1); White Blood Count 6.68 10^3/uL (3.29-11.43)
[2024-03-31 05:35] LABS: Anion Gap 17.6 (5-19); Blood Urea Nitrogen 14 mg/dL (8-23); C Reactive Protein 17.8 mg/L (0.0-4.9); Calcium 8.7 mg/dL (8.5-10.5); Carbon Dioxide 36 mmol/L (22-29); Chloride 95 mmol/L (98-107); Creatinine Clr Calc Pharmacy 101.9777; Glucose 134 mg/dL (65-115); Magnesium 2.3 mg/dL (1.7-2.3); Osmolality Calculated 300 mOsm/kg (285-295); Potassium 4.6 mmol/L (3.5-5.1); Sodium 144 mmol/L (136-145)
[2024-03-31] MEDS: ipratropium-albuterol 3 mL Neb INHALATION ×3 (07:29→19:54)
[2024-03-31 07:39] LABS: ABG PH Result 7.29 (7.35-7.45); Alveolar-Arterial Oxygen Gradi 27.4 mmHg (5-10); Arterial Blood Gas Hematocrit 52.5 % (42-52); Blood Gas Allen Test Pos; Blood Gas Operator Identificat WALCI; Blood Gas Sample Site Radial, right; Blood Gas Sample Type Arterial; Blood Gas Tidal Volume 0.45; Carboxyhemoglobin 1.6 %THgb (0.4-20.1); HCO3 ABG 42.9 mmol/L (22-26); HGB O2 Sat 92.9 % (95-100); Ionized Calcium Level - ABG 1.2 mmol/L (1.1-1.4); Methemoglobin 0.2 % (0.4-1.5); Oxygen Device BIPAP; Oxygen Saturation ABG 94.5; PO2 ABG 76.5 mmHg (80.0-100.0); PO2 FiO2 Ratio Arterial Blood 139; Potassium Level - ABG 4.3 mmol/L (3.5-5.0); Total Hemoglobin 17.1 g/dL (14-18)
[2024-03-31 07:40] LABS: ABG PCO2 89.9 mmHg (35-45)
[2024-03-31] MEDS: losartan 50 mg Tablet 100 MG PO (08:40)
[2024-03-31] MEDS: FUROsemide 10 mg/mL SDV 2mL 20 MG IVP (08:40)
[2024-03-31] MEDS: sennosides-docusate Tablet 1 TAB PO (08:40)
[2024-03-31] MEDS: amlodipine 10 mg Tablet PO (08:40)
--- NOTE | 2024-03-31 09:37 | PC.CHAP ---
Pastoral Care Encounter/Spiritual Assessment Type of Contact [] Declined department director visit [] Patient/Family/Request visit [] Outpatient visit [] Follow-up visit [] Physician referral [] Code/Alert [x] Routine visit [] Staff referral [] Actively dying [] Patient sleeping [] Family support [] [] Out of room [] Palliative care [] [] Receiving care in room [] Pre-surgical visit [] Trauma [] Long length of stay [] ICU visit [] Other: Relational/Emotional Strength [x] Patient feels connected with others/family/visitors/staff [] Distress [] Loneliness/isolation [] Abandonment Spirituality of Patient [x] Person of Rosa [] Attends Uatsdin of their Rosa [x] Believes in Prayer [] Reads Bible or Mandaen materials [] There are Spiritual issues to be addressed Test Preparer Interventions [x] Prayer [x] Active listening [] Non-anxious presence [x] Spiritual/emotional support [] Crisis/trauma care [] Spiritual counseling [] Bereavement support [] Provided bereavement packet [] Provided Bible/devotional materials [] Provided toy/stuffed animal, coloring book to patient or family member [] Provided Communion [] Anointing/Pinch [] Salvation [x] Completed spiritual assessment [] Other: Impact on Illness or Injury [] Angry [] Fearful [] Anxious [] Often cries [] Exhaustion [] Unable to work [] Unable to attend synagogue [] Unable to walk/stand [] Unable to read [] Unable to drive [] Unable to eat/drink [] Unable to sleep [] Unable to be with family [] Patient intubated [] Other: Summary Time spent with patient 5 min
--- NOTE | 2024-03-31 09:54 | P.PN_ITS ---
Subjective 2 Subjective: Patient this morning was fine to eat breakfast However I asked him to hold off because he was still hypercapnic and I want him to stay on AVAPS a little longer Will transfer him to ICU Place Bull catheter, request another ABG at 1 PM Patient is full code Sister is at the bedside No signs of PE Vitals/I&O/Wt Last Vital Signs Temp 97.5 F L 03/31/24 07:24 Pulse 66 03/31/24 09:04 Resp 18 03/31/24 07:29 BP 146/80 03/31/24 08:40 Pulse Ox 92 03/31/24 09:04 O2 Del Method BiPAP 03/31/24 07:29 O2 Flow Rate 5 03/30/24 18:37 FiO2 55 03/31/24 09:04 Weight last 48 hrs Weight 110.223 kg Weight 110.223 kg Weight 111.13 kg Physical Exam 2 Narrative: Morbidly obese Facial plethora COPD related changes noted Currently on AVAPS Able to answer simple questions Nonfocal neuroexam Signs of fluid overload present S1, S2 Normotensive Patient becomes hypoxic off BiPAP Data 03/31/24 04:11 03/31/24 04:11 A&P Assessment and plan (1) Essential hypertension: (2) GERD (gastroesophageal reflux disease): Qualifiers: Esophagitis presence: without esophagitis Qualified Code(s): K21.9 - Gastro-esophageal reflux disease without esophagitis (3) Skin lesion of left ear: (4) Unresponsive episode: (5) COPD (chronic obstructive pulmonary disease): Qualifiers: COPD type: chronic bronchitis Chronic bronchitis type: simple Qualified Code(s): J41.0 - Simple chronic bronchitis (6) Acute respiratory failure with hypoxia and hypercapnia: (7) Hypoxia: (8) NOHELIA (obstructive sleep apnea): (9) Syncope: Plan 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 Patient will need BiPAP at the time of discharge which is important to prevent respiratory distress and readmissions including worsening of hypoxia that can lead up to cardiac arrest Patient will need ICU Continue AVAPS Repeat ABG at 1 PM Acute diastolic CHF exacerbation Bull catheter placed, continue diuresis Syncope: PE ruled out, likely related to hypercapnic hypoxic episode Patient also has LAD calcification evident on CTA chest No active chest pain, EKG without ischemic or infarctive changes Continue Lovenox DVT prophylaxis DuoNeb and steroids Hypertension: Continue amlodipine losartan Monitor closely in ICU patient is full code Will request overnight pulse ox 04/02 Spoke with the sister who is at the bedside Attestations 2 Medical Necessity Statement*: Transfer to ICU Diagnoses Essential hypertension I10 Gastroesophageal reflux disease without esophagitis K21.9 Esophagitis presence: without esophagitis Skin lesion of left ear H61.92 Unresponsive episode R40.4 Simple chronic bronchitis J41.0 COPD type: chronic bronchitis Chronic bronchitis type: simple Acute respiratory failure with hypoxia and hypercapnia J96.01; J96.02 Hypoxia R09.02 NOHELIA (obstructive sleep apnea) G47.33 Syncope R55
--- NOTE | 2024-03-31 13:04 | PC.NURSE ---
Arrived in ICU from [facility]
--- NOTE | 2024-03-31 13:08 | PC.NURSE ---
Pt safely transported to ICU via bed by this nurse, EBONI Cottrell and RT Nohemy at 1300. JORGE Dawn assumed care of pt at this time.
[2024-03-31] MEDS: methylPREDNISolone sod succ 40 mg/mL INJ 30 MG IVP (13:43)
[2024-03-31] MEDS: FUROsemide 10 mg/mL SDV 4mL 40 MG IVP (13:43)
[2024-03-31 13:47] LABS: ABG PH Result 7.41 (7.35-7.45); Arterial Blood Gas Hematocrit 49.6 % (42-52); Base Excess ABG 15.6 mmol/L (-2.0-2.0); Blood Gas Allen Test Pos; Blood Gas Operator Identificat GD; Blood Gas Sample Site Radial, left; Blood Gas Sample Type Arterial; HCO3 ABG 44.6 mmol/L (22-26); Oxygen Device BIPAP; PO2 ABG 70.2 mmHg (80.0-100.0); PO2 FiO2 Ratio Arterial Blood 127
[2024-03-31 13:48] LABS: ABG PCO2 70.5 mmHg (35-45)
[2024-03-31] MEDS: enoxaparin 40 mg/0.4 mL Syringe SUBCUT (20:01)
[2024-04-01] VITALS (25 sets, daily range): BP systolic 121–152; BP diastolic 65–99; PULSE 50–84; RESP 15–25; TEMP 36.6–36.9; O2SAT 89–96
[2024-04-01] MEDS: methylPREDNISolone sod succ 40 mg/mL INJ 30 MG IVP ×2 (01:02→12:26)
[2024-04-01 04:35] LABS: ABG PH Result 7.39 (7.35-7.45); Arterial Blood Gas Hematocrit 53.6 % (42-52); Blood Gas Allen Test Pos; Blood Gas Sample Site Radial, right; Blood Gas Sample Type Arterial; HCO3 ABG 43.7 mmol/L (22-26); Oxygen Device BIPAP; PO2 ABG 89.7 mmHg (80.0-100.0); PO2 FiO2 Ratio Arterial Blood 163
[2024-04-01 04:40] LABS: ABG PCO2 72.6 mmHg (35-45)
[2024-04-01 05:42] LABS: Basophils % 0.1 %; Hematocrit 54.3 % (37-53); Lymphocytes # 0.4 10^3/uL (0.8-4.8); Lymphocytes % 4.5 %; Mean Corpuscular HGB Conc 30.9 g/dL (30-55); Mean Corpuscular Volume 90.3 fl (82-101); Mean Platelet Volume 9.5 fL (7.4-10.4); Monocytes # 0.4 10^3/uL (0.2-0.9); Monocytes % 3.9 %; Neutrophils # 8.94 10^3/uL (1.8-7.7); Neutrophils % 91.3 %; Nucleated Red Blood Cells % 0 %; Platelet Count 183 10^3/cmm (157-399); Red Blood Count 6.01 10^6/uL (3.85-5.65); Red Cell Distribution Width 14.6 % (12.1-15.1); White Blood Count 9.79 10^3/uL (3.29-11.43)
[2024-04-01 05:58] LABS: Blood Urea Nitrogen 17 mg/dL (8-23); Calcium 8.6 mg/dL (8.5-10.5); Carbon Dioxide 39 mmol/L (22-29); Chloride 93 mmol/L (98-107); Creatinine Clr Calc Pharmacy 100.9345; Glucose 129 mg/dL (65-115); Osmolality Calculated 295 mOsm/kg (285-295); Sodium 141 mmol/L (136-145)
[2024-04-01] MEDS: losartan 50 mg Tablet 100 MG PO (08:19)
[2024-04-01] MEDS: amlodipine 10 mg Tablet PO (08:20)
[2024-04-01] MEDS: sennosides-docusate Tablet 1 TAB PO (08:20)
[2024-04-01] MEDS: potassium chloride ER 20 mEq Tablet PO (08:20)
[2024-04-01] MEDS: ipratropium-albuterol 3 mL Neb INHALATION ×3 (08:22→19:36)
--- NOTE | 2024-04-01 09:57 | PM.PN ---
Subjective Subjective: Patient is doing much better Able to eat breakfast pH has improved Hypercapnia improved as well Vitals/I&O/Wt Last Vital Signs Temp 97.8 F 04/01/24 04:00 Pulse 80 04/01/24 08:28 Resp 20 H 04/01/24 08:20 BP 149/71 04/01/24 08:19 Pulse Ox 92 04/01/24 08:20 O2 Del Method Nasal Cannula 04/01/24 08:20 O2 Flow Rate 5 04/01/24 08:20 FiO2 55 04/01/24 00:00 03/31/24 04/01/24 04/01/24 22:59 06:59 14:59 Intake Total 200 / 200 Output Total 2750 / 3250 600 / 3850 Balance -2750 / -3250 -600 / -3850 200 / 200 Weight last 48 hrs Weight 108.046 kg Weight 110.223 kg Weight 110.223 kg Weight 111.13 kg Physical Exam Narrative: Patient eating breakfast Pleasant and cooperative Sign of fluid load improving Currently patient is on nasal cannula saturating well Awake and alert Nonfocal neuroexam S1, S2 Abdomen distended nontender Bull catheter in place Currently on 5 L Urinary Catheter Management: Bull: Cath Placed During This Visit: yes Reason for Continuing Indwelling Catheter: Accurate Measurement of Urinary Output in Critically Ill Patients Urinary Catheter Date of Insertion: 03/31/24 Urinary Catheter Time of Insertion: 10:00 Data 04/01/24 05:25 04/01/24 05:25 A&P Assessment and plan (1) Essential hypertension: (2) GERD (gastroesophageal reflux disease): Qualifiers: Esophagitis presence: without esophagitis Qualified Code(s): K21.9 - Gastro-esophageal reflux disease without esophagitis (3) Skin lesion of left ear: (4) Unresponsive episode: (5) COPD (chronic obstructive pulmonary disease): Qualifiers: COPD type: chronic bronchitis Chronic bronchitis type: simple Qualified Code(s): J41.0 - Simple chronic bronchitis (6) Acute respiratory failure with hypoxia and hypercapnia: (7) Hypoxia: (8) NOHELIA (obstructive sleep apnea): (9) Syncope: Plan 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 Patient improved significantly with AVAPS Patient will need home BiPAP to prevent readmissions, Resp distress worsening hypoxia hypercapnia which can lead up to inability protect airway, cardiac arrest Will request overnight pulse ox study Transfer out of ICU to [facility] Acute diastolic CHF exacerbation Adequate urine output, continue IV diuresis, Syncope: PE ruled out, likely related to hypercapnic hypoxic episode Patient also has LAD calcification evident on CTA chest No active chest pain, EKG without ischemic or infarctive changes Continue Lovenox DVT prophylaxis DuoNeb and steroids Hypertension: Continue amlodipine losartan Cardiac diet, full code Transfer to [facility] Attestations Medical Necessity Statement*: Plan to discharge by tomorrow if we are able to arrange BiPAP Diagnoses Essential hypertension I10 Gastroesophageal reflux disease without esophagitis K21.9 Esophagitis presence: without esophagitis Skin lesion of left ear H61.92 Unresponsive episode R40.4 Simple chronic bronchitis J41.0 COPD type: chronic bronchitis Chronic bronchitis type: simple Acute respiratory failure with hypoxia and hypercapnia J96.01; J96.02 Hypoxia R09.02 NOHELIA (obstructive sleep apnea) G47.33 Syncope R55
[2024-04-01] MEDS: FUROsemide 10 mg/mL SDV 4mL 40 MG IVP (12:26)
[2024-04-01] MEDS: enoxaparin 40 mg/0.4 mL Syringe SUBCUT (20:39)
[2024-04-02] VITALS (16 sets, daily range): BP systolic 111–160; BP diastolic 65–85; PULSE 52–78; RESP 16–20; TEMP 36.4–37.1; O2SAT 84–95
[2024-04-02] MEDS: methylPREDNISolone sod succ 40 mg/mL INJ 30 MG IVP (00:56)
--- NOTE | 2024-04-02 05:39 | PC.NURSE ---
on rounding patient was found to have O2 off. Saturation of oxygen was in the 40s. Patient did not remember taking it off, but was sleeping possibly did it on accident. Once 4lNC oxygen was reapplied patient O2 came back up to 92% rather quickly. Pt was reminded to keep O2 on while sleeping d/t sleep apnea, as confirmed by a positive sleep study.
[2024-04-02 06:32] LABS: Chloride 94 mmol/L (98-107); Potassium 4.1 mmol/L (3.5-5.1); Sodium 141 mmol/L (136-145)
[2024-04-02 06:33] LABS: Anion Gap 14.1 (5-19); Blood Urea Nitrogen 19 mg/dL (8-23); Calcium 8.7 mg/dL (8.5-10.5); Carbon Dioxide 37 mmol/L (22-29); Creatinine Clr Calc Pharmacy 97.8482; Glucose 142 mg/dL (65-115); Osmolality Calculated 297 mOsm/kg (285-295)
[2024-04-02] MEDS: ipratropium-albuterol 3 mL Neb INHALATION ×3 (08:31→19:39)
[2024-04-02] MEDS: amlodipine 10 mg Tablet PO (09:27)
[2024-04-02] MEDS: sennosides-docusate Tablet 1 TAB PO (09:27)
[2024-04-02] MEDS: potassium chloride ER 20 mEq Tablet PO (09:27)
[2024-04-02] MEDS: losartan 50 mg Tablet 100 MG PO (09:27)
--- NOTE | 2024-04-02 11:42 | PC.SOCIAL ---
IMM Updated Updated pt & family on IMM. No questions voiced. Provided pt a copy. Initialed, dated, & timed a copy & placed in chart.
--- NOTE | 2024-04-02 12:20 | P.PN_ITS ---
Subjective 2 Subjective: no overnight sleep study to help us w bipap approval this am which is unfortunate I have to keep pt here over the weekend Pt has been doing good and requires bipap intermittently Pt feeling better sister updated Vitals/I&O/Wt Last Vital Signs Temp 98.6 F 04/02/24 11:55 Pulse 72 04/02/24 11:55 Resp 18 04/02/24 11:55 BP 111/66 04/02/24 11:55 Pulse Ox 94 04/02/24 11:55 O2 Del Method Nasal Cannula 04/02/24 11:55 O2 Flow Rate 4 04/02/24 08:00 FiO2 55 04/02/24 08:00 04/01/24 04/02/24 04/02/24 22:59 06:59 14:59 Intake Total 480 / 980 500 / 1480 Output Total 1400 / 3200 550 / 3750 Balance -920 / -2220 -50 / -2270 Weight last 48 hrs Weight 101.605 kg Weight 108.046 kg Physical Exam 2 Narrative: Hypervolemic improving S1 S2 ABd soft distended awake non focal neuro exam BP stable Sister at bedside Urinary Catheter Management: Bull: Cath Placed During This Visit: yes Reason for Continuing Indwelling Catheter: Other Urinary Catheter Date of Insertion: 03/31/24 Urinary Catheter Time of Insertion: 10:00 Data 04/01/24 05:25 04/02/24 05:15 A&P Assessment and plan (1) Essential hypertension: (2) GERD (gastroesophageal reflux disease): Qualifiers: Esophagitis presence: without esophagitis Qualified Code(s): K21.9 - Gastro-esophageal reflux disease without esophagitis (3) Skin lesion of left ear: (4) Unresponsive episode: (5) COPD (chronic obstructive pulmonary disease): Qualifiers: COPD type: chronic bronchitis Chronic bronchitis type: simple Qualified Code(s): J41.0 - Simple chronic bronchitis (6) Acute respiratory failure with hypoxia and hypercapnia: (7) Hypoxia: (8) NOHELIA (obstructive sleep apnea): (9) Syncope: Plan 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 ordered overnight sleep study to help us in getting bipap approved HOME company should be faxed with ABGS and overnight pulse ox document once bipap is arranged, we can dc him from the hospital Acute diastolic CHF exacerbation Adequate urine output, continue IV diuresis, Syncope: PE ruled out, likely related to hypercapnic hypoxic episode Patient also has LAD calcification evident on CTA chest No active chest pain, EKG without ischemic or infarctive changes Continue Lovenox DVT prophylaxis DuoNeb and steroids Hypertension: Continue amlodipine losartan Cardiac diet, full code Hopefully can dc on Friday Attestations 2 Medical Necessity Statement*: Ruslan loja Diagnoses Essential hypertension I10 Gastroesophageal reflux disease without esophagitis K21.9 Esophagitis presence: without esophagitis Skin lesion of left ear H61.92 Unresponsive episode R40.4 Simple chronic bronchitis J41.0 COPD type: chronic bronchitis Chronic bronchitis type: simple Acute respiratory failure with hypoxia and hypercapnia J96.01; J96.02 Hypoxia R09.02 NOHELIA (obstructive sleep apnea) G47.33 Syncope R55
[2024-04-02] MEDS: FUROsemide 10 mg/mL SDV 4mL 40 MG IVP (13:50)
--- NOTE | 2024-04-02 19:45 | PC.RESP ---
Patient is ordered to wear 3lpm NC at home continuously, patient's states patient mainly wears O2 at bedtime. Will start patient on RA for the start of overnight pulse ox study when patient is ready for bed. Patient has family at the bedside at this time.
[2024-04-02] MEDS: enoxaparin 40 mg/0.4 mL Syringe SUBCUT (20:59)
--- NOTE | 2024-04-02 21:43 | PC.RESP ---
Patient was placed on overnight pulse ox starting at 2130, baseline room air. Patient dropped below 88% for greater than 5 minutes. Patient was then placed on bipap at 2136.
[2024-04-03] VITALS (11 sets, daily range): BP systolic 111–170; BP diastolic 66–95; PULSE 56–85; RESP 15–18; TEMP 36.6–37; O2SAT 88–99
[2024-04-03] MEDS: ipratropium-albuterol 3 mL Neb INHALATION ×2 (08:07→13:04)
[2024-04-03] MEDS: losartan 50 mg Tablet 100 MG PO (08:17)
[2024-04-03] MEDS: potassium chloride ER 20 mEq Tablet PO (08:17)
[2024-04-03] MEDS: sennosides-docusate Tablet 1 TAB PO (08:18)
[2024-04-03] MEDS: amlodipine 10 mg Tablet PO (08:18)
--- NOTE | 2024-04-03 11:33 | P.DS_ITS ---
Discharge Providers Date of Admission: 03/30/24 20:31 Date of Discharge: April 03, 2024 Attending Provider at Admission: Huyen Alford MD Attending Provider at Discharge: Huyen Alford MD Primary Care Provider: Vida Bellamy MD Diagnoses at Discharge Discharge Diagnosis (1) Essential hypertension: Status: Acute (2) GERD (gastroesophageal reflux disease): Status: Acute Qualifiers: Esophagitis presence: without esophagitis Qualified Code(s): K21.9 - Gastro-esophageal reflux disease without esophagitis (3) Skin lesion of left ear: Status: Acute (4) Unresponsive episode: Status: Acute (5) COPD (chronic obstructive pulmonary disease): Status: Acute Qualifiers: COPD type: chronic bronchitis Chronic bronchitis type: simple Qualified Code(s): J41.0 - Simple chronic bronchitis (6) Acute respiratory failure with hypoxia and hypercapnia: Status: Acute (7) Hypoxia: Status: Acute (8) NOHELIA (obstructive sleep apnea): Status: Acute (9) Syncope: Status: Acute Reason for Visit Reason for Visit: sob Hospital Course Hospital Course Ron Davies is a 73 year old male With past medical history of chronic sinusitis, hypertension, COPD, obstructive sleep apnea presented to the hospital with complaints of shortness of breath. He was apparently in the ER yesterday for the similar complaint. At home apparently he was unable to be aroused and when he was aroused he was on his concentrator at 4 L/min however patient appeared purple and was very confused. EMS was called. Saturations were in the 80s even when on oxygen. Patient was placed on nonrebreather and given 1 albuterol treatment his saturations came up to the 90s. He was taken off the nonrebreather and placed on nasal cannula 6 L/min and upon arrival to ER patient was 95%. ABG was obtained which showed 7.3 3/80/50 3.7. Patient was placed on BiPAP. Unsure of patient's home oxygen concentration is working or not. Patient's neighbor stated that patient has failed a sleep study however did not qualify for BiPAP or CPAP. Was started on BIPAP. Breathing improved and he was able to rest. Oxygenation also improved and he became more alert and able to answer questions appropriately. He did undergo overnight oxygen study that showed desaturation to less than 88%. He was placed on BIPAP which did improve his oxygenation status. His deepest desaturation value registered at 73% overnight. Orders were sent to [facility] for BIPAP. Patient was discharged in improved condition and is awaiting delivery of his BIPAP. Physical Exam Narrative: General: Cooperative patient in no apparent distress. Sitting up in chair. HEENT: Normocephalic, Atraumatic. External ears normal. Nasal passages patent without drainage. MMM. Heart: RRR. Resp: LCTA. No respiratory distress, no use of accessory muscles. Abd: Soft, non-tender. Non-distended. Extremities: No edema. Skin: No rash or lesions on exposed areas. Neuro: No focal motor or sensory loss. AO to person, place, time. Urinary Catheter Management: Bull: Cath Placed During This Visit: yes Reason for Continuing Indwelling Catheter: Accurate Measurement of Urinary Output in Critically Ill Patients Urinary Catheter Date of Insertion: 03/31/24 Urinary Catheter Time of Insertion: 10:00 Discharge Data Studies Completed and Pending Completed Studies During Hospitalization Category Date Time Status CTA chest [CT angio chest PE protcl [id number]] Stat Cat Scan 03/30/24 18:27 Completed Overnight oxygenation study with multiple desaturations overnight, lowest to 73%. Improved on BIPAP. Radiology Impressions Chest CTA 03/30/24 18:27 IMPRESSION: 1. No pulmonary embolism. 2. Moderate coronary artery calcifications predominantly along the LAD and D1. Laboratory Results WBC 9.79 10^3/uL (3.29-11.43) 04/01/24 05:25 RBC 6.01 10^6/uL (3.85-5.65) H 04/01/24 05:25 Hgb 16.80 g/dL (11.27-16.99) 04/01/24 05:25 Hct 54.3 % (37-53) H 04/01/24 05:25 MCV 90.3 fl (82-101) 04/01/24 05:25 MCH 28.0 pg (27-33) 04/01/24 05:25 MCHC 30.9 g/dL (30-55) 04/01/24 05:25 RDW 14.6 % (12.1-15.1) 04/01/24 05:25 Plt Count 183 10^3/cmm (157-399) 04/01/24 05:25 MPV 9.5 fL (7.4-10.4) 04/01/24 05:25 Neut % (Auto) 91.3 % 04/01/24 05:25 Lymph % (Auto) 4.5 % 04/01/24 05:25 [place] % (Auto) 3.9 % 04/01/24 05:25 Eos % (Auto) 0.0 % 04/01/24 05:25 Baso % (Auto) 0.1 % 04/01/24 05:25 Neut # (Auto) 8.94 10^3/uL (1.8-7.7) H 04/01/24 05:25 Lymph # (Auto) 0.4 10^3/uL (0.8-4.8) L 04/01/24 05:25 [place] # (Auto) 0.4 10^3/uL (0.2-0.9) 04/01/24 05:25 Eos # (Auto) 0.0 10^3/uL (0.0-0.8) 04/01/24 05:25 Baso # (Auto) 0.0 10^3/uL (0.0-0.1) 04/01/24 05:25 Nucleated RBC % (auto) 0 % 04/01/24 05:25 Nucleated RBCs # 0.0 /100WBC 04/01/24 05:25 Specimen Type Arterial 04/01/24 04:10 Sample Site Radial, right 04/01/24 04:10 ABG pH 7.39 (7.35-7.45) 04/01/24 04:10 ABG pCO2 72.6 mmHg (35-45) H* 04/01/24 04:10 ABG pO2 89.7 mmHg (80.0-100.0) 04/01/24 04:10 ABG PO2/FiO2 Ratio 163 04/01/24 04:10 ABG HCO3 43.7 mmol/L (22-26) H 04/01/24 04:10 ABG O2 Saturation 94.5 03/31/24 07:28 ABG Base Excess 14.0 mmol/L (-2.0-2.0) H 04/01/24 04:10 Nicholas Test Pos 04/01/24 04:10 A-a O2 Gradient 27.4 mmHg (5-10) H 03/31/24 07:28 Hematocrit 53.6 % (42-52) H 04/01/24 04:10 Hgb O2 Saturation 92.9 % (95-100) L 03/31/24 07:28 Carboxyhemoglobin 1.6 %THgb (0.4-20.1) 03/31/24 07:28 Methemoglobin 0.2 % (0.4-1.5) L 03/31/24 07:28 Total Hemoglobin 17.1 g/dL (14-18) 03/31/24 07:28 Sodium 141.0 mmol/L (131-143) 03/31/24 07:28 Potassium 4.3 mmol/L (3.5-5.0) 03/31/24 07:28 Glucose 122.0 mg/dL (70-115) H 03/31/24 07:28 Ionized Calcium 1.2 mmol/L (1.1-1.4) 03/31/24 07:28 O2 Delivery Device Bipap 04/01/24 04:10 O2 Liters/Min 5.0 % 03/30/24 18:34 FiO2 55.0 % 04/01/24 04:10 Tidal Volume 0.45 03/31/24 07:28 PEEP 8.0 cmH20 03/31/24 13:30 Procurement Internship ID [email or web address] 04/01/24 04:10 Sodium 141 mmol/L (136-145) 04/02/24 05:15 Potassium 4.1 mmol/L (3.5-5.1) 04/02/24 05:15 Chloride 94 mmol/L (98-107) L 04/02/24 05:15 Carbon Dioxide 37 mmol/L (22-29) H 04/02/24 05:15 Anion Gap 14.1 (5-19) 04/02/24 05:15 BUN 19 mg/dL (8-23) 04/02/24 05:15 Creatinine 0.6 mg/dL (0.7-1.2) L 04/02/24 05:15 GFR Calculation Not Reportable 04/02/24 05:15 Glucose 142 mg/dL (65-115) H 04/02/24 05:15 Calculated Osmolality 297 mOsm/kg (285-295) H 04/02/24 05:15 Calcium 8.7 mg/dL (8.5-10.5) 04/02/24 05:15 Phosphorus 5.0 mg/dL (2.5-4.5) H 03/31/24 04:11 Magnesium 2.3 mg/dL (1.7-2.3) 03/31/24 04:11 Total Bilirubin 0.7 mg/dL (0.15-1.2) 03/30/24 18:42 AST 39 U/L (0-40) 03/30/24 18:42 ALT 44 U/L (0-41) H 03/30/24 18:42 Alkaline Phosphatase 79 U/L (40-130) 03/30/24 18:42 C-Reactive Protein 17.8 mg/L (0.0-4.9) H 03/31/24 04:11 NT-Pro-B Natriuret Pep 333 pg/mL (0-125) H 03/30/24 18:42 Total Protein 7.2 g/dL (6.6-8.7) 03/30/24 18:42 Albumin 4.0 g/dL (3.5-5.2) 03/30/24 18:42 Globulin 3.2 g/dL (1.3-4.6) 03/30/24 18:42 Vitals Last Vital Signs Temp 98.6 F 04/03/24 07:34 Pulse 73 04/03/24 08:07 Resp 16 04/03/24 08:07 BP 124/77 04/03/24 08:17 Pulse Ox 94 04/03/24 08:07 O2 Del Method Nasal Cannula 04/03/24 08:07 O2 Flow Rate 5 04/03/24 08:07 FiO2 45 04/03/24 04:00 Discharge Plan Discharge Patient Disposition: Home Condition: Stable Prescriptions: New Lasix 20 mg tablet 20 mg PO DAILY Qty: 60 0RF potassium chloride 10 mEq tablet extended release 10 meq PO .Only when take Lasix PRN (Reason: With Lasix) Qty: 30 0RF amoxicillin-pot clavulanate 875-125 mg tablet 1 tab PO BID Qty: 10 0RF Continued Complete Multivitamin Tablet 1 tab PO DAILY amlodipine 10 mg tablet 10 mg PO DAILY 90 Days Qty: 90 3RF losartan-hydrochlorothiazide 100-25 mg tablet 1 tab PO DAILY 90 Days Qty: 90 3RF omeprazole 20 mg capsule,delayed release(DR/EC) 20 mg PO DAILY 90 Days Qty: 90 3RF omega 2-cyc-qzl-fish oil [Fish Oil] 1,000 mg (120 mg-180 mg) capsule 1 cap PO BID 90 Days Qty: 180 3RF Rx Instructions: may change brand/type/size fishoil per insurance coverage nystatin 100,000 unit/mL suspension 1,000,000 unit PO BID 30 Days Qty: 480 11RF Rx Instructions: swish and swallow or spit use after symbicort inhaler (DME) oxygen-air delivery systems Device See Rx Instructions .Route Rx Instructions: 3 lpm 07/04 prn miscellaneous medical supply Misc 1 ea miscellaneous ONCE Qty: 1 0RF Rx Instructions: Oxygen supplies 3L of oxygen budesonide 0.5 mg/2 mL suspension for nebulization 0.5 mg inhalation BID Qty: 60 11RF Rx Instructions: for use with nebulizer Ventolin HFA 90 mcg/actuation HFA aerosol inhaler See Rx Instructions .ROUTE .COMPLEX Qty: 18 11RF Dose Instruction: 2 PUFF(S) EVERY 6 HOURS NEEDED FOR SHORTNESS OF BREATH/WHEEZING Rx Instructions: 2 PUFF(S) EVERY 6 HOURS NEEDED FOR SHORTNESS OF BREATH/WHEEZING Allergy Relief (fluticasone) 50 mcg/actuation spray,suspension 1 spray INTRANASAL DAILY 90 Days Qty: 54.6 11RF Rx Instructions: each nostril daily Symbicort 160-4.5 mcg/actuation HFA aerosol inhaler See Rx Instructions .ROUTE .COMPLEX Qty: 10.2 11RF Dose Instruction: 2 PUFF(S) EVERY 12 HOURS FOR 30 DAYS RINSE MOUTH AFTER Rx Instructions: 2 PUFF(S) EVERY 12 HOURS FOR 30 DAYS RINSE MOUTH AFTER Perforomist 20 mcg/2 mL solution for nebulization 2 ml inhalation BID Qty: 60 11RF Rx Instructions: for use with nebulizer Discontinued miscellaneous medical supply Misc See Rx Instructions miscellaneous .COMPLEX Qty: 1 0RF Rx Instructions: Oxygen 3L NC at all times (activity and rest) miscellaneous; Discharge Orders: Discharge Order (Routine); Ordered 04/03/24 Ordered By: Cleve Santa Other Ambulatory Orders: DME: BIPAP (Order) Location: None Selected Ordered By: Huyen Alford Referrals: Vida Bellamy MD [Primary Care Provider] - 2 weeks (You will need to call your primary care provider on [facility] to schedule a follow up appointment. The number is [phone]. ) Discharge Diet: Cardiac Discharge Activity: Increase activity as tolerated Patient Instructions: Opioid Safety Discharge Attestations Time Spent in Discharge Care*: less than 30 min Specific Discharge Activities: educating patient, educating and/or supporting family/caregiver, discussing with pcp/other providers, documenting/other paperwork and evaluating patient/reviewing data Quality Metrics Clinical Quality Measures [ No reported AMI, CVA or VTE this stay] Coding Level of Care Code Acute Code for Chg Fwd Total time (in minutes) for Discharge: 36 Diagnoses Essential hypertension I10 Gastroesophageal reflux disease without esophagitis K21.9 Esophagitis presence: without esophagitis Skin lesion of left ear H61.92 Unresponsive episode R40.4 Simple chronic bronchitis J41.0 COPD type: chronic bronchitis Chronic bronchitis type: simple Acute respiratory failure with hypoxia and hypercapnia J96.01; J96.02 Hypoxia R09.02 NOHELIA (obstructive sleep apnea) G47.33 Syncope R55
[2024-04-03] MEDS: FUROsemide 10 mg/mL SDV 4mL 40 MG IVP (13:54)
== END 2024-04-03 15:55 | disposition home or self-care (01) | DRG 190 ==
LOC: ER 19:57 → MEDSURG 20:31 → ICU 03-31 12:58 → MEDSURG 04-01 13:34
PROVIDERS: Internal Medicine; Admitting Provider Internal Medicine; Emergency Provider Emergency Medicine; PCP Family Medicine; Visit Provider Internal Medicine
DX: J44.1 Chronic obstructive pulmonary disease with (acute) exacerbation (principal); I50.33 Acute on chronic diastolic (congestive) heart failure; J96.01 Acute respiratory failure with hypoxia; J96.02 Acute respiratory failure with hypercapnia; I11.0 Hypertensive heart disease with heart failure; K21.9 Gastro-esophageal reflux disease without esophagitis; G47.33 Obstructive sleep apnea (adult) (pediatric); Z99.81 Dependence on supplemental oxygen; R55 Syncope and collapse; F17.220 Nicotine dependence, chewing tobacco, uncomplicated; J32.8 Other chronic sinusitis; L98.9 Disorder of the skin and subcutaneous tissue, unspecified
CPT/HCPCS: 36415; 36600; 51702; 71275; 80048; 80051; 80053; 82330; 82803; 82805; 83735; 83880; 84100; 85025; 86140; 93005; 94640; 94660; 94664; 94760; 96372; 96374; 99291; J1650; J1940; J2919; Q9967

== ENCOUNTER → 2024-04-12 11:47 | Outpatient (BNVA) | payer MEDICARE, MEDICAID, SELFPAY | PROVIDERS: PCP Family Medicine; Visit Provider Family Medicine | DX: I10 Essential (primary) hypertension (principal) | CPT/HCPCS: 80048 ==

== ENCOUNTER → 2024-05-13 14:30 | Outpatient (BNVA) | payer MEDICARE, MEDICAID, SELFPAY | PROVIDERS: PCP Family Medicine; Visit Provider Nurse Practitioner Family | DX: L57.0 Actinic keratosis (principal); L82.0 Inflamed seborrheic keratosis; L91.8 Other hypertrophic disorders of the skin; L82.1 Other seborrheic keratosis; L81.4 Other melanin hyperpigmentation; Z48.817 Encounter for surgical aftercare following surgery on the skin and subcutaneous tissue; Z85.828 Personal history of other malignant neoplasm of skin | CPT/HCPCS: 17000; 17110; 99213 ==

== ENCOUNTER → 2024-06-04 08:47 | Outpatient (BNVA) | payer MEDICARE, MEDICAID, SELFPAY | PROVIDERS: PCP Family Medicine; Visit Provider Nurse Practitioner Family | DX: L82.1 Other seborrheic keratosis (principal); L81.4 Other melanin hyperpigmentation; Z85.828 Personal history of other malignant neoplasm of skin | CPT/HCPCS: 99213 ==

== ENCOUNTER → 2024-12-14 08:42 | Outpatient (BNVA) | payer MEDICARE, MEDICAID, SELFPAY | PROVIDERS: PCP Family Medicine; Visit Provider Family Medicine | DX: I10 Essential (primary) hypertension (principal); G47.33 Obstructive sleep apnea (adult) (pediatric); J41.0 Simple chronic bronchitis; J32.0 Chronic maxillary sinusitis; K21.9 Gastro-esophageal reflux disease without esophagitis; E78.1 Pure hyperglyceridemia; Z13.1 Encounter for screening for diabetes mellitus; R73.9 Hyperglycemia, unspecified | CPT/HCPCS: 80053; 80061; 83036 ==

== ENCOUNTER → 2025-05-05 09:54 | Outpatient (BNVA) | payer MEDICARE, MEDICAID, SELFPAY | PROVIDERS: PCP Family Medicine; Visit Provider Family Medicine | DX: M17.11 Unilateral primary osteoarthritis, right knee (principal) | CPT/HCPCS: 73562 ==